=== PATIENT | female | born 1965 | race Two or more races ===

== ENCOUNTER 2021-06-04 18:40 | Emergency (ER) | payer SELFPAY ==
[~2021-06-04] VITALS: Ht 162.6 cm; Wt 79.4 kg
[2021-06-04] MEDS ORDERED: KETAMINE 50mg/ML 10ml Vial (500mg/10ml) IV ONE (21:30)
[2021-06-04 23:00] VITALS: BP 136/71
== END 2021-06-05 01:21 | disposition home or self-care (01) ==
LOC: ER 18:42
DX: M24.311 Pathological dislocation of right shoulder, not elsewhere classified (principal); X58.XXXA Exposure to other specified factors, initial encounter; Y93.89 Activity, other specified; Y92.89 Other specified places as the place of occurrence of the external cause; Y99.8 Other external cause status
CPT/HCPCS: 23650; 73020; 73030; 99152; 99153